=== PATIENT | male | born 1930 | race Caucasian/White ===

== ENCOUNTER 2017-04-13 07:06 | Day surgery (SDC) | payer OTHER ==
[~2017-04-13] VITALS: Ht 175.3 cm; Wt 78.5 kg
--- NOTE | ~2017-04-13 | S ---
[facility] [place] [address] SURGICAL PATH RPT PROCEDURE Name: ABIEL WONG Room #: DEP [facility]#: [id number] Admission: 04/13/17 Date of : [birth year] Discharge: 04/13/17 Report #: [id number] Path Case #: [id number] PATHOLOGY REPORT COLLECTION DATE: 04/13/2017 RECEIVED DATE: 04/13/2017 SUBMITTING PHYS: Dr. Olu Gong OTHER PHYS: Dr. Jet Banks SPECIMEN(S) RECEIVED: A.Right lower lid basal cell carcinoma * * * * * * * * * * * * FINAL DIAGNOSIS: Skin, right lower lid basal cell carcinoma: - BASAL CELL CARCINOMA COMPLETELY EXCISED. (SHA:mml; 04/15/2017) PATHOLOGIST: Uri Johnson M.D. REPORT ELECTRONICALLY SIGNED BY: Uri Johnson M.D. DATE/TIME: 04/15/2017 13:28 * * * * * * * * * * * * GROSS PATHOLOGY: Specimen received fresh labeled "Abiel Wong, right lower lid basal cell carcinoma" consists of a piece of skin oriented by Dr. Gong as superior, inferior, medial, and lateral. The specimen measures 1 x 0.4 x 0.3 cm. The specimen is inked as follows: with 12 being superior margin 12-3:00 red, 3-6:00 yellow, 6-9:00 blue, 9-12:00 black, and deep is green. (SHA:mgr; 04/14/2017) FROZEN SECTION DIAGNOSIS: (Neo Johnson M.D.) FSA 1 Skin, "right lower lid " : - Basal cell carcinoma completely excised. These findings were discussed with Dr. Gong and a written report was placed in patient's chart. (SHA:mgr; 04/14/2017) Testing performed by [facility] at [facility] [address] [place] [address] CLINICAL HISTORY: Basal cell carcinoma [address] [place] [address] SURGICAL PATH RPT PROCEDURE Name: ABIEL WONG Room #: [facility].#: [id number] Admission: 04/13/17 Date of : [birth year] Discharge: 04/13/17 Report #: [id number] Path Case #: [id number] INITIAL CPT CODE(S): A; 73537, 36378 Professional services performed by [facility] at [place] [address], [place] [address] Technical services performed by [facility] at [address] [place] [address], [facility] [address] [address]. [facility] [address] [place] [address] PHONE: [phone] DIRECTOR: Kavin Martínez M.D. * * * END OF REPORT * * *
--- NOTE | ~2017-04-13 | O ---
[facility] [place] [address] OPERATIVE REPORT Name: ABIEL WONG JR Room #: 150-7 [facility].#: [id number] Admission: 04/13/17 Attend Phys: Olu Gong MD Discharge: Date of : [birth year] Report #: [id number] THIS REPORT FOR: //name// CC: Jet Gong DATE OF SERVICE: 04/13/2017 DATE OF SERVICE: 04/13/2017 PREOPERATIVE DIAGNOSIS: Basal cell carcinoma of right lower lid and cheek. POSTOPERATIVE DIAGNOSIS: Basal cell carcinoma of right lower lid and cheek. PROCEDURE: Excision of recurrent basal cell carcinoma of right lower lid and cheek with frozen section, control of margins and myocutaneous flap repair of defect. SURGEON: Olu Gong MD AUTOMOTIVE TECHNICIAN INSTRUCTOR: None. ANESTHESIA: MAC. COMPLICATIONS: None. INDICATIONS FOR SURGERY: This pleasant 86-year-old gentleman has a recurrent biopsy proven basal cell carcinoma in his right lower lid and cheek. He previously had the lesion excised with clear frozen section margins. A biopsy recently in the office showed that the tumor had returned. He presents today for excision of the basal cell carcinoma with frozen sections and repair of that defect. Informed consent was obtained to include but not limited to the potential risk for loss of vision, bleeding, infection, failure to improve the problem, the potential need for further surgery or treatment. DESCRIPTION OF PROCEDURE: The patient was taken to the operating room where 2% Xylocaine with epinephrine mixed with equal parts of 0.75% Marcaine with Wydase was administered transcutaneously and transconjunctivally to the right lower lid, the right lateral canthus and the right cheek. The patient was subsequently prepped and draped in the usual sterile fashion. A skin marking pen was then utilized to outline the lesion including 1-2 mm of normal appearing tissue. The incision was basically parallel to his nasojugal fold. The incisions were then made with a 15C blade and drawn down into the buccal fat [address] [address] OPERATIVE REPORT Name: ABIEL WONG Room #: 150-7 [facility]..#: [id number] Admission: 04/13/17 Attend Phys: Olu Gong MD Discharge: Date of : [birth year] Report #: [id number]. Hemostasis was achieved with diligent pinpoint monopolar cautery. The specimen was then oriented on a drawing for the waiting pathologist. She snap froze the tissue and found that there was indeed significant residual basal cell carcinoma, but the margins were clear. She also saw calcification in the prior scar. The area was then widely undermined to allow a myocutaneous flap to be developed. Hemostasis was then re-achieved. The flap was then secured with interrupted buried 6-0 Vicryl sutures deep followed by 6-0 plain gut sutures more superficially. The wound was then cleaned and dressed with erythromycin ophthalmic ointment and the patient subsequently transported to the recovery area having tolerated the procedure well with no anesthetic or operative complications being noted. By: 1316 [id number] Olu Gong MD /nt
[~2017-04-13 07:06] MED LIST: ADULT LOW DOSE81 MG PO; ASPIR 8181 MG PO; COUMADIN 4 MG TA4 M1 PO; COUMADIN 5 MG TA5 M1 PO; HYTRIN10 MG PO; MOM PO; NORCO 5-325 TA1 EACH PO; PROSCAR 5MG TABL5 M1 PO; TERAZOSIN HCL10 MG PO; TRIAMTERENE-HC1 EAC1 PO; VITAMIN D31000 UNI2 PO; VITAMIN D32000 UNI1 PO
[2017-04-13 11:12] VITALS: BP 152/82
== END 2017-04-13 14:00 | disposition home or self-care (01) ==
LOC: OR 07:06 → TBA 07:06 → OR 14:00
DX: C44.112 Basal cell carcinoma of skin of right eyelid, including canthus (principal)
CPT/HCPCS: 50010; 50101; 50398; 51636; 56528; 56531; 62110; 62850; 70005